=== PATIENT | female | born 1980 | race Caucasian/White ===

== ENCOUNTER 2018-03-26 18:18 | Emergency (ER) | payer OTHER ==
[2018-03-26 18:29] VITALS: BMI 28.4
[2018-03-26 18:31] VITALS: RESP 18; O2SAT 100
[2018-03-26] MEDS ORDERED: Sodium Chloride 0.9% 1,000 ML IV ONE (18:42)
--- NOTE | 2018-03-26 18:46 | C.PDOC ---
History Of Present Illness 37 year old female presents to the emergency department with complaints of inability to have a bowel movement persisting for the last four days. Patient states that she is experiencing gas with no stool, her urination is normal, that she is experiencing diffuse abdominal discomfort worse at her right side, and she is having some mild nausea. Patient denies vomiting, fever, chills and states she has never experienced symptoms like these before. She states that she has tried a fiber-rich diet as well as exercising but still has not had a bowel movement. Patient reports her last menstrual period was on 03-08-18 and was normal. Time Seen by Provider: 03/26/18 18:35 Chief Complaint (Nursing): Abdominal Pain History Per: Patient History/Exam Limitations: no limitations Onset/Duration Of Symptoms: Days (4) Current Symptoms Are (Timing): Still Present Location Of Pain/Discomfort: RUQ Quality Of Discomfort: "Pain" Associated Symptoms: Nausea, Other (gas). denies: Fever, Chills Last Menstral Period: 03-08-18 Past Medical History Reviewed: Historical Data, Nursing Documentation, Vital Signs Vital Signs: Last Vital Signs Temp 98 F 03/26/18 18:29 Pulse 69 03/26/18 18:29 Resp 18 03/26/18 18:29 BP 131/70 03/26/18 18:29 Pulse Ox 100 03/26/18 18:51 - Medical History PMH: No Chronic Diseases Surgical History: No Surg Hx Family History: States: No Known Family Hx - Social History Hx Alcohol Use: No Hx Substance Use: No - Immunization History Hx Tetanus Toxoid Vaccination: No Hx Influenza Vaccination: No Hx Pneumococcal Vaccination: No Review Of Systems Constitutional: Negative for: Fever, Chills Gastrointestinal: Positive for: Nausea, Abdominal Pain. Negative for: Vomiting , Diarrhea Genitourinary: Negative for: Dysuria, Hematuria Physical Exam - Physical Exam Appears: Non-toxic, No Acute Distress (patient looks okay) Cardiovascular: Rhythm Regular Respiratory: Wheezing (mild) Gastrointestinal/Abdominal: Tenderness (RUQ, Epigastrium), No Distention, No Guarding, No Rebound, Other (bowel sounds quiet, no palpated masses.) ED Course And Treatment - Laboratory Results Result Diagrams: 03/26/18 19:08 03/26/18 19:08 Lab Interpretation: Normal O2 Sat by Pulse Oximetry: 100 (RA) Pulse Ox Interpretation: Normal - Other Rad Obstructive series X-Ray: Interpreted by Me Interpretation: Nonspecific bowel gas pattern with increased stool volume in the ascending colon. Progress Note: Plan: CMP. Lipase. CBC. XR Obstructive Series. IV Fluids. HCG. Urinalysis Reevaluation Time: 19:55 Reassessment Condition: Unchanged (Patient given Magnesium Citrate to drink) Disposition Counseled Patient/Family Regarding: Studies Performed, Diagnosis, Need For Followup - Disposition Referrals: [facility] [Outside] Disposition: HOME/ ROUTINE Disposition Time: 19:59 Condition: STABLE Additional Instructions: Encourage plenty of fluids. Return to ED for any increased abdominal pain, nausea or vomiting or fever. Instructions: Constipation, Adult (DC) Forms: [employer] ([place]) - Clinical Impression Clinical Impression: Constipation - Scribe Statement The provider has reviewed the documentation as recorded by the Scribe (Devin Ortez) All medical record entries made by the Scribe were at my direction and personally dictated by me. I have reviewed the chart and agree that the record accurately reflects my personal performance of the history, physical exam, medical decision making, and the department course for this patient. I have also personally directed, reviewed, and agree with the discharge instructions and disposition.
[2018-03-26] MEDS ORDERED: Sodium Chloride 0.9% 1,000 ML ONE (18:57)
[2018-03-26 19:11] LABS: BASO # 0.1 K/uL (0.0-0.2); BASO % 0.8 % (0.0-2.0); EOS # 0.3 K/uL (0.0-0.7); LYMPH # 3.3 K/uL (1.0-4.3); LYMPH % 38.7 % (20.0-40.0); MEAN CELL VOLUME 77.7 fL (81.0-99.0); MEAN CORPUSCULAR HEMOGLOBIN 25.8 pg (27.0-31.0); MEAN CORPUSCULAR HGB CONC 33.2 g/dL (33.0-37.0); MEAN PLATELET VOLUME 8.7 fL (7.2-11.7); MONO # 0.6 K/uL (0.0-0.8); NEUT # 4.2 K/uL (1.8-7.0); NEUT % 50.5 % (50.0-75.0); NRBC % 0.2 % (0.0-2.0); RBC 4.64 Mil/uL (3.80-5.20); WHITE BLOOD COUNT 8.4 K/uL (4.8-10.8)
[2018-03-26 19:26] LABS: ALB/GLOB RATIO 1.2 (1.0-2.1); ALBUMIN 4.1 g/dL (3.5-5.0); ALT/SGPT 10 U/L (9-52); AST/SGOT 21 U/L (14-36); BLOOD UREA NITROGEN 15 mg/dL (7-17); CALCIUM 8.6 mg/dl (8.6-10.4); GFR AFRICAN-AMERICAN > 60; GFR NON-AFRICAN AMERICAN > 60; LIPASE 300 U/L (23-300)
[2018-03-26 19:38] LABS: HCG,QUALITATIVE URINE NEGATIVE (NEGATIVE)
[2018-03-26 19:42] LABS: SQUAMOUS EPITHIAL 9 /hpf (0-5); URINE BILIRUBIN NEGATIVE (NEGATIVE); URINE BLOOD NEGATIVE (NEGATIVE); URINE CLARITY Clear (Clear); URINE COLOR Yellow (YELLOW); URINE GLUCOSE (UA) NORMAL (Normal); URINE LEUKOCYTE ESTERASE TRACE Leu/uL (Negative); URINE PROTEIN NEGATIVE (NEGATIVE)
[2018-03-26] MEDS ORDERED: Magnesium Citrate Oral SOL (300 ml) PO ONE (20:00)
[2018-03-26 20:05] VITALS: BP 119/79; PULSE 59; TEMP 98.5
[2018-03-26] MEDS ORDERED: Magnesium Citrate Oral SOL (300 ml) ONE (20:07)
--- NOTE | 2018-03-27 10:37 | RAD ---
PROCEDURE: Radiographs of the chest and abdomen (obstructive series) HISTORY: Abdominal pain COMPARISON: No prior. TECHNIQUE: AP radiograph of the chest, with upright and supine radiographs of the abdomen. FINDINGS: CHEST: Lungs: Clear. Cardiovascular: Normal size heart. No pulmonary vascular congestion. Pleura: No pleural fluid. No pneumothorax. Other findings: None. ABDOMEN AND PELVIS: Bowel: Unremarkable bowel gas pattern. No evidence of mechanical obstruction. Free air: None. Bones: Unremarkable. Other findings: None. IMPRESSION: Unremarkable radiographs of chest and abdomen. No evidence of mechanical bowel obstruction.
== END 2018-03-26 20:11 | disposition home or self-care (01) ==
LOC: C.ER 18:18
DX: K59.00 Constipation, unspecified (principal)
CPT/HCPCS: 74022; 80053; 81001; 83690; 84703; 85025; 96360; 99285; J7040